=== PATIENT | female | born 1960 | race Hispanic/Latino ===

== ENCOUNTER 2018-09-01 01:48 | Inpatient (IN) | payer MEDICAID ==
--- NOTE | 2018-09-01 02:27 | ED PDOC ---
Psych Transfer Clearance - Clearance Statement Clearance Statement: Dr. George reviewed vital signs, lab results and transfer papers. Patient clinically stable for psychiatric admission.
[2018-09-01] MEDS ORDERED: Bismuth Subsalicylate 262 mg/15 ml Sus (240 ml) PO PRN (02:47)
[2018-09-01] MEDS ORDERED: Alum-Mag Hydrox-Simethicone Susp (30 mL) PO PRN (02:47)
[2018-09-01] MEDS ORDERED: Magnesium Hydroxide Susp 30 ml UD PO PRN (02:47)
--- NOTE | 2018-09-01 03:30 | PCM.BM ---
<Abdoul Easley - Last Filed: 09/01/18 03:28> Treatment Plan Problems - Problems identified on initial assessmt Less than Optimal Nutrition Date Initiated: 09/01/18 Time Initiated: 03:28 Assessment reference: NA Status: Active Priority: 1 Altered Sleep Patterns Date Initiated: 09/01/18 Time Initiated: 03:28 Assessment reference: NA Status: Active Priority: 2 Medication nonadherence Date Initiated: 09/01/18 Time Initiated: 03:29 Assessment reference: NA Status: Active Priority: 3 Self Care Deficit Date Initiated: 09/01/18 Time Initiated: 03:29 Assessment reference: NA Status: Active Priority: 4 Anxiety Date Initiated: 09/01/18 Time Initiated: 03:29 Assessment reference: NA Status: Active Priority: 5 Altered Thought Process Date Initiated: 09/01/18 Time Initiated: 03:29 Assessment reference: NA Status: Active Priority: 6 Social Isolation Date Initiated: 09/01/18 Time Initiated: 03:30 Assessment reference: NA Status: Active Priority: 7 Feelings of Worthlessness Date Initiated: 09/01/18 Time Initiated: 03:30 Assessment reference: NA Status: Active Priority: 8 Hopelessness/Helplessness Date Initiated: 09/01/18 Time Initiated: 03:31 Assessment reference: NA Status: Active Priority: 9 Treatment assets and liabiliti Patient Assests: cooperative, self-reliant, ADL independent, negotiates basic needs Patient Liabilities: financial problems, poor support system, relationship conflicts, substance abuse, medical problems - Milieu Protocol Maintain good personal hygiene: daily Encourage regular showers, daily Remind patient to perform daily oral care, daily Assist patient to perform ADL's Conduct patient checks and document Observation sheet: Q15 minutes Maintain personal safety: every shift Educate patient to report safety concerns to staff, every shift Monitor environment for contraband/sharps Medication safety: Monitor for expected outcome, potential side effects: every shift, Assess barriers to learning: every shift, Assess readiness for medication education: every shift <Saba Moran - Last Filed: 09/01/18 11:07> - Diagnosis (1) Severe benzodiazepine use disorder Status: Acute Interventions: Medicaiton management, Individual and group therapy, Psychoeducation 09/01/18 11:07 (2) Depressive disorder Status: Acute Interventions: Medicaiton management, Individual and group therapy, Psychoeducation 09/01/18 11:08 (3) Generalized anxiety disorder Status: Acute Interventions: Medicaiton management, Individual and group therapy, Psychoeducation 09/01/18 11:08 <Triny Landryleonel Portillo - Last Filed: 09/01/18 12:54> Family Contact Family involvement: Family/SO is involved Family contact: Patient agrees to contact, Family has been contacted by patient, Telephone contact initiated by staff Family contact name: Sav - father Family contacted how many times per week?: 1 Family contact comment: [phone] - Outside Agency David Villalta Obi, MD Care involent: Information-sharing Agency contact number: - Goals for Treatment Patient goals for treatment: Pt will improve overall mood. Pt will report improvement in depression and anxiety. Pt will develop strategies for thought distraction when ruminating ont he past. Pt will reduce anxiety and improve coping skills. Pt will be free of panic episodes. Pt will reduce benzodiazapine intake and consumption. Pt will verbalize when experiencing withdrawals. Pt will attend clinical and activity groups. Pt will comply with medications. Discharge/Continuing Care - Education Needs Education Needs: Patient Medication, Patient Diagnosis/Disease Process, Patient Coping Skills, Patient Community resources, Patient Activities of Daily Living, Patient Uses of Medical Equipment, Patient Health Practices/Safety, Patient Personal Hygiene/Grooming, Patient Aftercare Safety Plan - Discharge Discharge Criteria: Tolerates medication w/o severe side effects, Free of Suicidal thoughts, Free of agitation, Normal sleep pattern, Ability to care for self, Reduction of target symptoms Discharge to:: Home, With Family - Additional Comments Pt seen and discussed in team meeting. Reason for hospitalization reviewed and discussed. Pt was a transfer from [facility]. Pt reported reason for ED visits primarily due to severe cough and bronchitis. Pt reported feeling depressed and anxious with vague and passive wishes. Pt stated "there are days i think what is the purpose here." Pt reported hx of depression and anxiety for 5 years after her brothers . Pt reported she is currently under the care and treatment of Dr. David Bryson who is currently prescribing her Klonopin 2mg TIB, Ambien, Zoloft and Seroquel. Pt reported that prior to Klonopin she was being prescribed Xanax 2mg TIB; however, Dr. Bryson was investigated by the [facility] and Xanax was discontinued. Pt reported that she would like to "wean down and her maintain my medications down." Pt reported conflictual relationship with her son due to his substance abuse hx. 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 Pt reported that her father financially supports her. Pt's medical and social issues reviewed and discussed. Pt's medications reviewed. Please refer to attending MD progress note for additional information. Tx plan reviewed and discussed; pt verbalized agreement. SW to contact pt's father for collateral information; signed release form on file. SW to continue to follow case. - Treatment Team Participation Discussed with Family/SO: No Was Patient/Family/SO present at Treatment Team Meeting: Yes
[2018-09-01] MEDS ORDERED: DiphenhydrAMINE 50 mg/ml Inj IM PRN (04:19)
[2018-09-01 06:40] LABS: HEMOGLOBIN 12.7 g/dL (12.0-16.0); MEAN CELL VOLUME 82.6 fl (81.0-99.0); MEAN CORPUSCULAR HEMOGLOBIN 26.5 pg (27.0-31.0); MEAN CORPUSCULAR HGB CONC 32.1 g/dL (33.0-37.0); RBC 4.81 Mil/uL (3.80-5.20); RED CELL DISTRIBUTION WIDTH 18.6 % (11.5-14.5); WHITE BLOOD COUNT 7.9 K/uL (4.8-10.8)
[2018-09-01 07:02] LABS: IRON 47 ug/dL (37-170)
[2018-09-01 07:11] LABS: % IRON SATURATION 13 % (20-55); TOTAL IRON BINDING CAPACITY 375 ug/dL (250-450)
[2018-09-01 07:24] LABS: ALB/GLOB RATIO 1.3 (1.0-2.1); ALBUMIN 4.7 g/dL (3.5-5.0); ALT/SGPT 20 U/L (9-52); AST/SGOT 22 U/L (14-36); BLOOD UREA NITROGEN 18 mg/dl (7-17); CALCIUM 9.8 mg/dL (8.4-10.2); GFR NON-AFRICAN AMERICAN > 60; HDL CHOLESTEROL 75 MG/DL (30-70)
[2018-09-01 07:40] LABS: LDL CHOLESTEROL 169 mg/dL (0-129)
[2018-09-01 08:08] LABS: FERRITIN 19.6 ng/Ml (11.1-264.0)
--- NOTE | 2018-09-01 10:47 | PCM.PSYCH ---
Initial Psychiatric Evaluation - Initial Psychiatric Evaluation Type of Admission: Voluntary Legal Status: Capacity Chief Complaint (in patient's own words): Depression and Anxiety Patient's Reaction to Hospitalization: HPI: 58 yo female w/ h/o depression and anxiety, presents with worsening depression and anxiety, hopelessness, poor sleep, poor appetite, reported suicidal thoughts in the ER yesterday, but denies current active suicidal bettie ation/plan/intent. Patient reports she has been taking Klonopin 2 mg PO TID and also reports a history of taking Xanax 2 mg PO TID. Patient keeps requesting to poem writer that she be given more benzodiazepines and made vague threats that she may have a "seizure" and then describes how she may have upper body movements while still conscious and with "twitching eyes." Patient seems highly manipulative on interview. PPHx: 1 previous psychiatric admission in [facility] 8 months ago for depression, anxiety; no history of suicide attempts; Dr. Bryson; She reports that she has been taking Zoloft 200 mg PO Daily; Seroquel 50 mg as needed; Ambien 10 mg PO HS, Klonopin 2 mg PO TID. Patient gives conflicting information on the amount of benzodiazepines she uses. PMHx: HTN, COPD, Chronic back pain ALL: Codeine, ASA, Keflex, NSAIDs, Trazodone, TB serum SHx: Lives w/ her father; +Benzo use, smokes almost 1 ppd; denies alcohol use FHx: Mother's family w/ h/o depression and anxiety Current Medications: Active Medications Generic Name Dose Route Start Last Admin Trade Name Freq PRN Reason Stop Dose Admin Acetaminophen 650 mg 09/01/18 02:47 Tylenol 325mg Tab PO Q4 PRN Pain, moderate (4-7) Al Hydrox/Mg Hydrox/Simethicone 30 ml 09/01/18 02:47 Maalox Plus 30 Ml PO Q4 PRN Dyspepsia Amlodipine Besylate 10 mg 09/01/18 09:00 09/01/18 09:05 Norvasc PO 10 mg DAILY [facility] Administration Benzonatate 100 mg 09/01/18 09:00 09/01/18 09:04 Tessalon Perles PO 100 mg Q8 [facility]EL Administration Clindamycin HCl 300 mg 09/01/18 09:00 09/01/18 09:04 Cleocin PO 300 mg Q8 [facility]EL Administration Protocol Diphenhydramine HCl 50 mg 09/01/18 04:19 Benadryl IM Q6 PRN Extrapyramidal S/S Unable PO Diphenhydramine HCl 50 mg 09/01/18 04:19 Benadryl PO Q6 PRN Extrapyramidal Symptoms Diphenhydramine HCl 50 mg 09/01/18 04:19 Benadryl PO HS PRN Sleep Haloperidol 5 mg 09/01/18 04:19 Haldol PO Q4 PRN Agitation Haloperidol Lactate 5 mg 09/01/18 04:19 Haldol IM Q4 PRN Agitation, Unable to Take PO Lorazepam 2 mg 09/01/18 04:19 Ativan IM Q6 PRN Anxiety/Agitation,Unable PO Lorazepam 1 mg 09/01/18 04:19 09/01/18 06:32 Ativan PO 1 mg Q6 PRN Administration Anxiety/Agitation Magnesium Hydroxide 30 ml 09/01/18 02:47 Milk Of Magnesia PO HS PRN Constipation Zolpidem Tartrate 5 mg 09/01/18 22:00 Ambien PO HS [facility] Past Psychiatric History - Past Psychiatric History Previous Treatment History: Inpatient Pertinent Medical Hx (Current Medical&Sleep Prob, Allergies): Allergies Allergy/AdvReac Type Severity Reaction Status Date / Time NSAIDS (Non-Steroidal Allergy Mild RASH Verified 09/01/18 02:10 Anti-Inflamma aspirin Allergy RASH Verified 09/01/18 05:07 cephalexin [From Keflex] Allergy RASH Verified 09/01/18 05:07 codeine Allergy ANAPHYLAXIS Verified 09/01/18 05:07 trazodone Allergy SHORTNESS Verified 09/01/18 06:38 OF BREATH tuberculin, purified protein Allergy RASH Verified 09/01/18 05:07 deriva Benzonatate [Tessalon Perles] 100 mg PO Q8H 09/01/18 Clindamycin [Cleocin] 300 mg PO Q8H 09/01/18 Clonazepam 2 mg PO 09/01/18 QUEtiapine [SEROquel] 50 mg PO 09/01/18 Sertraline [Zoloft] 100 mg PO 09/01/18 Zolpidem [Ambien] 10 mg PO 09/01/18 amLODIPine [Norvasc] 10 mg PO 09/01/18 Review of Systems - Psychiatric Psychiatric: As Per HPI, Abnormal Sleep Pattern, Anhedonia, Anxiety, Behavioral Changes, Change in Appetite, Depression, Difficulty Concentrating, Hopelessness, Suicidal Ideation Mental Status Examination - Personal Presentation Personal Presentation: Looks stated age - Affect Affect: Constricted - Motor Activity Motor Activity: Calm - Reliability in Providing Information Reliability in Providing Information: Fair - Speech Speech: Coherent - Mood Mood: Depressed, Anxious - Formal Thought Process Formal Thought Process: No Impairment - Hallucinations/Delusions Additional comments: No AH/VH/paranoia/delusions - Obsessions/Compulsions Obsessions: No Compulsions: No - Cognitive Functions Orientation: Person, Place, Situation, Time Estimate of Intelligence: Average Judgement: Imparied, as evidence by: Poor judgement, Imparied, as evidence by: Lack of insight into illness Memory: Recent intact, as evidence by: Ability to recall events of the day - Risk Risk: Withdrawal, Diminished functioning - Strength & Assets Inventory Strength & Assets Inventory: Family support DSM 5 DX - DSM 5 DSM 5 Diagnosis: Benzodiazepine Use Disorder; Depressive Disorder; Generalized Anxiety Disorder - Recommended/Plan of Treatment Treatment Recommendations and Plan of Treatment: Benzodiazepine Use Disorder; Depressive Disorder; Generalized Anxiety Disorder -Admit to psychiatry unit -Give Klonopin to prevent benzo withdrawal; will taper gradually; Psychoeducation provided to the patient on the dangers of benzo abuse -Restart Zoloft and Seroquel -Medicine consult -Individual and group therapy -Disposition planning Projected ELOS: 5-8 days Discharge Plan and Discharge Criteria: Discharge when patient is psychiatrically stable - Smoking Cessation Smoking Cessation Initiated: Yes
[2018-09-01 12:54] LABS: FOLATE 11.3 ng/mL
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
[2018-09-01] MEDS ORDERED: Patient's Own Med (Zolpidem [Ambien] 10 MG) PO SCH (22:00)
--- NOTE | 2018-09-02 12:03 | PCM.PYCHPN ---
Psychiatric Progress Note - Psychiatric Progress Note Patient seen today, length of contact: pt seen and evaluated Patient Chief Complaint: pt has been still c/o feeling very anxious at bedtime and waking up with anxiety and says that she did well on remeron.pt is still depressed and anxious and exhibiting meds seeking behavior and remains with poor insight and poor judgement and need further stabilization. Medication Change: No Medical Record Reviewed: Yes Mental Status Examination - Cognitive Function Orientation: Person, Place, Situation, Time - Mood Mood: Depressed, Anxious - Affect Affect: Constricted - Formal Thought Process Formal Thought Process: No Impairment Goal/Treatment Plan - Goal/Treatment Plan Progress Toward Problem(s) and Goals/Treatment Plan: will continue to engage pt in therapy and adjust meds as needed and minimise benzos due to patient's med seeking behavior will add remeron 15 mg hs for anxiety and depression and pt agreed to plan. disposition as per dr molina
[2018-09-02 17:00] LABS: SQUAMOUS EPITHIAL 2 /hpf (0-5); URINE BILIRUBIN NEGATIVE (NEGATIVE); URINE BLOOD NEGATIVE (NEGATIVE); URINE CLARITY SLIGHTY-CLOUDY (Clear); URINE COLOR YELLOW (YELLOW); URINE GLUCOSE (UA) NEG (NEGATIVE); URINE LEUKOCYTE ESTERASE NEG Leu/uL (Negative); URINE PROTEIN NEGATIVE (NEGATIVE); URINE UROBILINOGEN 0.2-1.0 mg/dL (0.2-1.0)
[2018-09-03 06:01] VITALS: O2SAT 98
--- NOTE | 2018-09-03 16:13 | CP.PCM.PN ---
<Viri Mcclelland - Last Filed: 09/03/18 15:50> Subjective - Date & Time of Evaluation Date of Evaluation: 09/03/18 Time of Evaluation: 15:15 - Subjective Subjective: Patient seen and examined in Psych unit this afternoon. Patient is seen alert, awake, and in no acute distress. Patient still having some pain in her left forearm. On PO clindamycin. Denies fevers, chills, N/V. Also patient coughing for more than one week, associated with yellowish sputum production. Objective - Vital Signs/Intake and Output Vital Signs (last 24 hours): Temp Pulse Resp BP Pulse Ox 97.7 F 68 18 152/86 H 98 09/03/18 06:00 09/03/18 08:34 09/03/18 06:00 09/03/18 08:34 09/03/18 06:00 - Medications Medications: Current Medications Acetaminophen (Tylenol 325mg Tab) 650 mg PO Q4 PRN PRN Reason: Pain, moderate (4-7) Last Admin: 09/02/18 21:18 Dose: 650 mg Al Hydrox/Mg Hydrox/Simethicone (Maalox Plus 30 Ml) 30 ml PO Q4 PRN PRN Reason: Dyspepsia Albuterol/Ipratropium (Duoneb 3 Mg/0.5 Mg (3 Ml) Ud) 3 ml INH RQ6 [place] Amlodipine Besylate (Norvasc) 10 mg PO DAILY [facility] Last Admin: 09/03/18 08:34 Dose: 10 mg Benzonatate (Tessalon Perles) 100 mg PO Q8@0600,1400,2200 [facility] Last Admin: 09/03/18 13:28 Dose: 100 mg Clindamycin HCl (Cleocin) 300 mg PO Q8@0600,1400,2200 [facility]; Protocol Last Admin: 09/03/18 13:29 Dose: 300 mg Clonazepam (Klonopin) 1 mg PO TID [facility] Last Admin: 09/03/18 13:28 Dose: 1 mg Diphenhydramine HCl (Benadryl) 50 mg IM Q6 PRN PRN Reason: Extrapyramidal S/S Unable PO Diphenhydramine HCl (Benadryl) 50 mg PO Q6 PRN PRN Reason: Extrapyramidal Symptoms Diphenhydramine HCl (Benadryl) 50 mg PO HS PRN PRN Reason: Sleep Guaifenesin/Dextromethorphan (Mucinex-Dm 600-30 Mg) 1 tab PO BID [facility] Haloperidol (Haldol) 5 mg PO Q4 PRN PRN Reason: Agitation Haloperidol Lactate (Haldol) 5 mg IM Q4 PRN PRN Reason: Agitation, Unable to Take PO Loperamide HCl (Imodium) 2 mg PO Q6 PRN PRN Reason: Diarrhea Last Admin: 09/01/18 16:14 Dose: 2 mg Lorazepam (Ativan) 2 mg IM Q6 PRN PRN Reason: Anxiety/Agitation,Unable PO Lorazepam (Ativan) 1 mg PO Q6 PRN PRN Reason: Anxiety/Agitation Last Admin: 09/03/18 11:16 Dose: 1 mg Magnesium Hydroxide (Milk Of Magnesia) 30 ml PO HS PRN PRN Reason: Constipation Mirtazapine (Remeron) 15 mg PO HS [facility] Nicotine (Nicoderm Cq) 1 patch TD DAILY [facility] Last Admin: 09/03/18 08:34 Dose: 1 patch Quetiapine Fumarate (Seroquel) 100 mg PO HS [facility] Last Admin: 09/02/18 21:20 Dose: 100 mg Sertraline HCl (Zoloft) 200 mg PO DAILY [facility] Last Admin: 09/03/18 08:35 Dose: 200 mg - Labs Labs: 09/01/18 06:15 09/01/18 06:15 - Constitutional Appears: Non-toxic, No Acute Distress - Eye Exam Eye Exam: Normal appearance - ENT Exam ENT Exam: Mucous Membranes Moist - Respiratory Exam Respiratory Exam: Rhonchi (scant, diffuse rhonchi bilateral), NORMAL BREATHING PATTERN. absent: Decreased Breath Sounds, Rales, Wheezes, Respiratory Distress, Stridor - Cardiovascular Exam Cardiovascular Exam: REGULAR RHYTHM, +S1, +S2 - GI/Abdominal Exam GI & Abdominal Exam: Soft, Normal Bowel Sounds. absent: Distended, Guarding, Rigid, Tenderness - Extremities Exam Extremities Exam: Normal Inspection. absent: Calf Tenderness, Pedal Edema Additional comments: left forearm: erythematous lesion with a 1 1//2 cm diameter round raised center, tender and fluctuant to palpation. No axillary lymph node - Back Exam Back Exam: NORMAL INSPECTION. absent: CVA tenderness (L), CVA tenderness (R) - Neurological Exam Neurological Exam: Alert, Awake, Oriented x3 - Psychiatric Exam Psychiatric exam: Normal Affect, Normal Mood - Skin Skin Exam: Dry, Intact, Normal Color Assessment and Plan - Assessment and Plan (Free Text) Assessment: 58 y/o F with h/o HTN, COPD, depression admitted in psych unit for eval and Treatment reports productive cough for more than 1 week, and left forearm cellulitis. Plan: Productive cough -h/o COPD -x 1 week -CXR, f/u results -start mucinex DM -start duoneb inh Q6h Left arm cellulitis Lesion marked, no spreading beyond rita -associated with poss abscess -No axillary lymphadenopathy. -h/o MRSA -c/w warm compresses -s/p being scratched by cat -pending Bartonella IGM/IGG to r/o Cat scratch disease -on clindamycin PO Q6 -surgical consult for poss drainage. Recs area appreciated -tylenol for pain, has NSAIDs allergies -CBC to f/u WBC Low TSH normal FRee T3/T4 pending antibodies <Lynsey Luna - Last Filed: 09/05/18 07:40> Objective - Vital Signs/Intake and Output Vital Signs (last 24 hours): Temp Pulse Resp BP Pulse Ox 98.1 F 91 H 18 97/60 L 98 09/05/18 05:55 09/05/18 05:55 09/05/18 05:55 09/05/18 05:55 09/04/18 15:55 - Medications Medications: Current Medications Acetaminophen (Tylenol 325mg Tab) 650 mg PO Q4 PRN PRN Reason: Pain, moderate (4-7) Last Admin: 09/04/18 22:45 Dose: 650 mg Al Hydrox/Mg Hydrox/Simethicone (Maalox Plus 30 Ml) 30 ml PO Q4 PRN PRN Reason: Dyspepsia Albuterol/Ipratropium (Duoneb 3 Mg/0.5 Mg (3 Ml) Ud) 3 ml INH RQ6 [facility] Last Admin: 09/05/18 02:00 Dose: Not Given Amlodipine Besylate (Norvasc) 10 mg PO DAILY [facility] Last Admin: 09/04/18 12:32 Dose: 10 mg Benzonatate (Tessalon Perles) 100 mg PO Q8@0600,1400,2200 [facility] Last Admin: 09/05/18 05:57 Dose: 100 mg Clonazepam (Klonopin) 1 mg PO TID [facility] Last Admin: 09/04/18 16:36 Dose: 1 mg Diphenhydramine HCl (Benadryl) 50 mg IM Q6 PRN PRN Reason: Extrapyramidal S/S Unable PO Diphenhydramine HCl (Benadryl) 50 mg PO Q6 PRN PRN Reason: Extrapyramidal Symptoms Diphenhydramine HCl (Benadryl) 50 mg PO HS PRN PRN Reason: Sleep Guaifenesin/Dextromethorphan (Mucinex-Dm 600-30 Mg) 1 tab PO BID [facility] Last Admin: 09/04/18 16:35 Dose: 1 tab Haloperidol (Haldol) 5 mg PO Q4 PRN PRN Reason: Agitation Haloperidol Lactate (Haldol) 5 mg IM Q4 PRN PRN Reason: Agitation, Unable to Take PO Loperamide HCl (Imodium) 2 mg PO Q6 PRN PRN Reason: Diarrhea Last Admin: 09/01/18 16:14 Dose: 2 mg Lorazepam (Ativan) 2 mg IM Q6 PRN PRN Reason: Anxiety/Agitation,Unable PO Lorazepam (Ativan) 1 mg PO Q6 PRN PRN Reason: Anxiety/Agitation Last Admin: 09/04/18 22:45 Dose: 1 mg Magnesium Hydroxide (Milk Of Magnesia) 30 ml PO HS PRN PRN Reason: Constipation Mirtazapine (Remeron) 15 mg PO HS [facility] Last Admin: 09/04/18 21:17 Dose: 15 mg Nicotine (Nicoderm Cq) 1 patch TD DAILY [facility] Last Admin: 09/04/18 11:03 Dose: 1 patch Quetiapine Fumarate (Seroquel) 100 mg PO HS [facility] Last Admin: 09/04/18 21:17 Dose: 100 mg Sertraline HCl (Zoloft) 200 mg PO DAILY [facility] Last Admin: 09/04/18 12:31 Dose: 200 mg - Labs Labs: 09/03/18 19:11 09/01/18 06:15 Attending/Attestation - Attestation I have personally seen and examined this patient.: Yes I have fully participated in the care of the patient.: Yes I have reviewed all pertinent clinical information, including history, physical exam and plan: Yes Notes (Text): 09/05/18 07:40 With findings and plan as above. With cellulitis due to cat scratch. On clindamycin.
[2018-09-03] MEDS: guaiFENesin-DM 600-30 mg ER Tab PO SCH (17:14)
[2018-09-03 19:15] LABS: BASO # 0.1 K/uL (0.0-0.2); BASO % 0.8 % (0.0-2.0); EOS # 0.1 K/uL (0.0-0.7); EOS % 0.9 % (0.0-4.0); HEMOGLOBIN 11.8 g/dL (12.0-16.0); LYMPH # 1.7 K/uL (1.0-4.3); LYMPH % 16.9 % (20.0-40.0); MEAN CELL VOLUME 81.1 fl (81.0-99.0); MEAN CORPUSCULAR HEMOGLOBIN 26.6 pg (27.0-31.0); MEAN CORPUSCULAR HGB CONC 32.8 g/dL (33.0-37.0); MEAN PLATELET VOLUME 9.3 fl (7.2-11.7); MONO # 0.7 K/uL (0.0-0.8); MONO % 6.8 % (0.0-10.0); NEUT # 7.7 K/uL (1.8-7.0); NEUT % 74.6 % (50.0-75.0); RBC 4.43 Mil/uL (3.80-5.20); RED CELL DISTRIBUTION WIDTH 18.6 % (11.5-14.5); WHITE BLOOD COUNT 10.3 K/uL (4.8-10.8)
[2018-09-03] MEDS: Albuterol-Ipratrop 3 mg / 0.5 (3 ml) UD INH SCH (20:10)
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
[2018-09-04] MEDS: Albuterol-Ipratrop 3 mg / 0.5 (3 ml) UD INH SCH ×4 (01:15→19:06)
[2018-09-04] MEDS: guaiFENesin-DM 600-30 mg ER Tab PO SCH ×2 (08:22→16:35)
--- NOTE | 2018-09-04 11:58 | CP.PCM.PN ---
<Viri Mcclelland - Last Filed: 09/04/18 12:35> Subjective - Date & Time of Evaluation Date of Evaluation: 09/04/18 Time of Evaluation: 12:00 - Subjective Subjective: Patient was seen and examined at bedside in Psychiatry unit. Patient is seen alert, awake, and oriented x 3. Patient reports pain in her left forearm at the abscess level. Cough has been improving since yesterday with duoneb. Denies chest pain, SOB, dizziness, N/V, abdominal pain or other complains at this eval. Has been NPO after midnight as per surgery recommendations for possible I & D in OR today. Objective - Vital Signs/Intake and Output Vital Signs (last 24 hours): Temp Pulse Resp BP Pulse Ox 97.6 F 76 19 141/72 98 09/04/18 05:57 09/04/18 10:59 09/04/18 05:57 09/04/18 10:59 09/03/18 06:00 - Medications Medications: Current Medications Acetaminophen (Tylenol 325mg Tab) 650 mg PO Q4 PRN PRN Reason: Pain, moderate (4-7) Last Admin: 09/04/18 06:00 Dose: 650 mg Al Hydrox/Mg Hydrox/Simethicone (Maalox Plus 30 Ml) 30 ml PO Q4 PRN PRN Reason: Dyspepsia Albuterol/Ipratropium (Duoneb 3 Mg/0.5 Mg (3 Ml) Ud) 3 ml INH RQ6 [place] Last Admin: 09/04/18 08:22 Dose: 3 ml Amlodipine Besylate (Norvasc) 10 mg PO DAILY [facility] Last Admin: 09/04/18 10:59 Dose: Not Given Benzonatate (Tessalon Perles) 100 mg PO Q8@0600,1400,2200 [place] Last Admin: 09/04/18 06:29 Dose: Not Given Clindamycin HCl (Cleocin) 300 mg PO Q8@0600,1400,2200 [facility]; Protocol Last Admin: 09/04/18 06:30 Dose: Not Given Diphenhydramine HCl (Benadryl) 50 mg IM Q6 PRN PRN Reason: Extrapyramidal S/S Unable PO Diphenhydramine HCl (Benadryl) 50 mg PO Q6 PRN PRN Reason: Extrapyramidal Symptoms Diphenhydramine HCl (Benadryl) 50 mg PO HS PRN PRN Reason: Sleep Guaifenesin/Dextromethorphan (Mucinex-Dm 600-30 Mg) 1 tab PO BID [facility] Last Admin: 09/04/18 08:22 Dose: Not Given Haloperidol (Haldol) 5 mg PO Q4 PRN PRN Reason: Agitation Haloperidol Lactate (Haldol) 5 mg IM Q4 PRN PRN Reason: Agitation, Unable to Take PO Loperamide HCl (Imodium) 2 mg PO Q6 PRN PRN Reason: Diarrhea Last Admin: 09/01/18 16:14 Dose: 2 mg Lorazepam (Ativan) 2 mg IM Q6 PRN PRN Reason: Anxiety/Agitation,Unable PO Lorazepam (Ativan) 1 mg PO Q6 PRN PRN Reason: Anxiety/Agitation Last Admin: 09/03/18 21:04 Dose: 1 mg Magnesium Hydroxide (Milk Of Magnesia) 30 ml PO HS PRN PRN Reason: Constipation Mirtazapine (Remeron) 15 mg PO HS [facility] Last Admin: 09/03/18 21:05 Dose: 15 mg Nicotine (Nicoderm Cq) 1 patch TD DAILY [facility] Last Admin: 09/04/18 11:03 Dose: 1 patch Quetiapine Fumarate (Seroquel) 100 mg PO HS [facility] Last Admin: 09/03/18 21:05 Dose: 100 mg Sertraline HCl (Zoloft) 200 mg PO DAILY [facility] Last Admin: 09/04/18 10:59 Dose: Not Given - Labs Labs: 09/03/18 19:11 09/01/18 06:15 - Constitutional Appears: Non-toxic, No Acute Distress - Head Exam Head Exam: NORMAL INSPECTION - Eye Exam Eye Exam: Normal appearance - ENT Exam ENT Exam: Mucous Membranes Moist - Respiratory Exam Respiratory Exam: Clear to Ausculation Bilateral, NORMAL BREATHING PATTERN. absent: Rhonchi, Wheezes, Respiratory Distress, Stridor - Cardiovascular Exam Cardiovascular Exam: REGULAR RHYTHM, +S1, +S2 - GI/Abdominal Exam GI & Abdominal Exam: Soft, Normal Bowel Sounds. absent: Guarding, Rigid, Tenderness - Extremities Exam Extremities Exam: Normal Inspection. absent: Calf Tenderness, Pedal Edema - Neurological Exam Neurological Exam: Alert, Awake, Oriented x3 Assessment and Plan - Assessment and Plan (Free Text) Assessment: 58 y/o F with h/o HTN, COPD, depression admitted in psych unit for eval and Treatment reports productive cough for more than 1 week, and left forearm cellulitis and abscess. Plan: Left arm cellulitis patient is medically optimized for I & D procedure by surgery today -has been NPO after midnight for I & D today Lesion marked, no spreading beyond rita -associated with poss abscess -No axillary lymphadenopathy. -h/o MRSA -c/w warm compresses -s/p being scratched by cat -pending Bartonella IGM/IGG to r/o Cat scratch disease -on clindamycin PO Q6 -surgery consulted. Recs are appreciated -tylenol for pain, has NSAIDs allergies -CBC today showed no leukocytosis Productive cough improving -h/o COPD -x 1 week -CXR, f/u results -c/e mucinex DM x 5 days -c/w duoneb inh Q8 <Lynsey Luna - Last Filed: 09/05/18 07:34> Objective - Vital Signs/Intake and Output Vital Signs (last 24 hours): Temp Pulse Resp BP Pulse Ox 98.1 F 91 H 18 97/60 L 98 09/05/18 05:55 09/05/18 05:55 09/05/18 05:55 09/05/18 05:55 09/04/18 15:55 - Medications Medications: Current Medications Acetaminophen (Tylenol 325mg Tab) 650 mg PO Q4 PRN PRN Reason: Pain, moderate (4-7) Last Admin: 09/04/18 22:45 Dose: 650 mg Al Hydrox/Mg Hydrox/Simethicone (Maalox Plus 30 Ml) 30 ml PO Q4 PRN PRN Reason: Dyspepsia Albuterol/Ipratropium (Duoneb 3 Mg/0.5 Mg (3 Ml) Ud) 3 ml INH RQ6 [facility] Last Admin: 09/05/18 02:00 Dose: Not Given Amlodipine Besylate (Norvasc) 10 mg PO DAILY [facility] Last Admin: 09/04/18 12:32 Dose: 10 mg Benzonatate (Tessalon Perles) 100 mg PO Q8@0600,1400,2200 [facility] Last Admin: 09/05/18 05:57 Dose: 100 mg Clonazepam (Klonopin) 1 mg PO TID [facility] Last Admin: 09/04/18 16:36 Dose: 1 mg Diphenhydramine HCl (Benadryl) 50 mg IM Q6 PRN PRN Reason: Extrapyramidal S/S Unable PO Diphenhydramine HCl (Benadryl) 50 mg PO Q6 PRN PRN Reason: Extrapyramidal Symptoms Diphenhydramine HCl (Benadryl) 50 mg PO HS PRN PRN Reason: Sleep Guaifenesin/Dextromethorphan (Mucinex-Dm 600-30 Mg) 1 tab PO BID [facility] Last Admin: 09/04/18 16:35 Dose: 1 tab Haloperidol (Haldol) 5 mg PO Q4 PRN PRN Reason: Agitation Haloperidol Lactate (Haldol) 5 mg IM Q4 PRN PRN Reason: Agitation, Unable to Take PO Loperamide HCl (Imodium) 2 mg PO Q6 PRN PRN Reason: Diarrhea Last Admin: 09/01/18 16:14 Dose: 2 mg Lorazepam (Ativan) 2 mg IM Q6 PRN PRN Reason: Anxiety/Agitation,Unable PO Lorazepam (Ativan) 1 mg PO Q6 PRN PRN Reason: Anxiety/Agitation Last Admin: 09/04/18 22:45 Dose: 1 mg Magnesium Hydroxide (Milk Of Magnesia) 30 ml PO HS PRN PRN Reason: Constipation Mirtazapine (Remeron) 15 mg PO HS [facility] Last Admin: 09/04/18 21:17 Dose: 15 mg Nicotine (Nicoderm Cq) 1 patch TD DAILY [facility] Last Admin: 09/04/18 11:03 Dose: 1 patch Quetiapine Fumarate (Seroquel) 100 mg PO HS [facility] Last Admin: 09/04/18 21:17 Dose: 100 mg Sertraline HCl (Zoloft) 200 mg PO DAILY [facility] Last Admin: 09/04/18 12:31 Dose: 200 mg - Labs Labs: 09/03/18 19:11 09/01/18 06:15 Attending/Attestation - Attestation I have personally seen and examined this patient.: Yes I have fully participated in the care of the patient.: Yes I have reviewed all pertinent clinical information, including history, physical exam and plan: Yes Notes (Text): 09/05/18 07:34 30-year-old female admitted to psych requiring I&D of cellulitis on forearm and OR by surgery. Patient medically stable for OR. Agree with findings and plan as above.
--- NOTE | 2018-09-04 12:18 | RAD ---
Date of service: 09/04/2018 HISTORY: Smoker, cough. COMPARISON: None TECHNIQUE: 1 view obtained. FINDINGS: LUNGS: No active pulmonary disease.. 1 or 2 granulomas left lung base may be present Scalloping right hemidiaphragm. Peripherally calcified bilateral breast implants. PLEURA: No significant pleural effusion identified, no pneumothorax apparent. CARDIOVASCULAR: No aortic atherosclerotic calcification present. Heart size borderline enlarged. No pulmonary vascular congestion. OSSEOUS STRUCTURES: No significant abnormalities. VISUALIZED UPPER ABDOMEN: Normal. OTHER FINDINGS: None. IMPRESSION: No acute consolidation. Minor linear scarring left medial lung base consolidation. One or 2 tiny granulomas may be present. Peripherally calcified bilateral breast implants.
[2018-09-04] MEDS ORDERED: Midazolam 2 MG/2 ML VIAL ONE (13:11)
[2018-09-04] MEDS ORDERED: Propofol 10 mg/ml Inj (20 ML) ONE (13:11)
[2018-09-04] MEDS ORDERED: Lidocaine 1% Inj (20ml) ONE (13:38)
[2018-09-04] MEDS ORDERED: Clindamycin 300 mg/2 ml Inj IVPB ONE (14:30)
--- NOTE | 2018-09-04 14:49 | PCM.SURG1 ---
Surgeon's Initial Post Op Note - Surgeon's Notes Surgeon: Dr. [employer] Executive Security: Dr. Elizabeth Bunn PGY1 Type of Anesthesia: General Mask, Local Anesthesia Administered By: Dr. Muñoz Pre-Operative Diagnosis: Left arm abscess Operative Findings: See dictation. Injectables: 2cc of 1% lidocaine plain. Materials: 1/4 inch iodoform packing Post-Operative Diagnosis: Left arm abscess Operation Performed: Left arm abscess incision and drainage Specimen/Specimens Removed: None Estimated Blood Loss: EBL {In ML}: 1 Blood Products Given: N/A Drains Used: No Drains Post-Op Condition: Good Date of Surgery/Procedure: 09/04/18 Time of Surgery/Procedure: 14:48
[2018-09-04] MEDS ORDERED: Sodium Chloride 0.9% 1,000 ML IV SCH (15:00)
--- NOTE | 2018-09-04 16:28 | PCM.PYCHPN ---
Psychiatric Progress Note - Psychiatric Progress Note Patient seen today, length of contact: chart reviewed case discussed with team Patient Chief Complaint: pt was off unit for I and D of wound on arm-pt was noted to arrive on unit, pt was assessed by primary rn, pt was noted to be ambulating/asking for food. reports not having pain or dizziness. reports understands why procedure was done. staff report pt is adherent with treatment, Problems Identified/Issues Discussed: alteration in skin integrity alteration in mood Medical Problems: per chart Diagnostic Results: per psychiatry per medicine per surgery per nursing per social work per recreational therapy DSM 5 Symptoms Update: mood appears to stabilizing pt seen by surgery/or today for I and D Medication Change: No Medical Record Reviewed: Yes Consults ordered or reviewed: pt seen by surgery/medicine today Mental Status Examination - Cognitive Function Orientation: Person, Place, Situation, Time Attention: WNL Concentration: WNL Association: WNL Fund of Knowledge: WN Decription of patient's judgement and insights: somewhat impaired - Mood Mood: Depressed, Anxious - Affect Affect: Constricted - Formal Thought Process Formal Thought Process: No Impairment - Suicidal Ideation Suicidal Ideation: No - Homicidal Ideation Homicidal Ideation: No Goal/Treatment Plan - Goal/Treatment Plan Progress Toward Problem(s) and Goals/Treatment Plan: inpt milieu vital signs and clinical evaluation per protocol and per clinical status pt being followed by medicine discharge planning in progress Estimated Date of D/C: 09/05/18 - Smoking Cessation Smoking Cessation Initiated: No Reason for not providing: defers
--- NOTE | 2018-09-04 19:21 | CARD ---
APPROVED REPORT Date of service: 09/04/2018 EKG Measurement Heart [id number] <Conclusion> Normal sinus rhythm Nonspecific T wave abnormality Abnormal ECG
[2018-09-05] MEDS: Albuterol-Ipratrop 3 mg / 0.5 (3 ml) UD INH SCH ×2 (02:00→09:03)
[2018-09-05 05:57] VITALS: BP 97/60; RESP 18; TEMP 98.1
--- NOTE | 2018-09-05 07:57 | CP.PCM.PN ---
Subjective - Date & Time of Evaluation Date of Evaluation: 09/05/18 Time of Evaluation: 07:57 - Subjective Subjective: General Surgery Progress Note: Dr. Dinh 58 year old female patient seen and evaluated POD#1 left arm abscess incision and drainage. Patient resting comfortably, denies any acute events overnight. She reports pain to the surgical site at this time. Dressing clean/dry/intact, no strikethrough. Denies nausea/vomiting/fever/shortness of breath. Objective - Vital Signs/Intake and Output Vital Signs (last 24 hours): Temp Pulse Resp BP Pulse Ox 98.1 F 91 H 18 97/60 L 98 09/05/18 05:55 09/05/18 05:55 09/05/18 05:55 09/05/18 05:55 09/04/18 15:55 - Medications Medications: Current Medications Acetaminophen (Tylenol 325mg Tab) 650 mg PO Q4 PRN PRN Reason: Pain, moderate (4-7) Last Admin: 09/04/18 22:45 Dose: 650 mg Al Hydrox/Mg Hydrox/Simethicone (Maalox Plus 30 Ml) 30 ml PO Q4 PRN PRN Reason: Dyspepsia Albuterol/Ipratropium (Duoneb 3 Mg/0.5 Mg (3 Ml) Ud) 3 ml INH RQ6 [facility] Last Admin: 09/05/18 02:00 Dose: Not Given Amlodipine Besylate (Norvasc) 10 mg PO DAILY [facility] Last Admin: 09/04/18 12:32 Dose: 10 mg Benzonatate (Tessalon Perles) 100 mg PO Q8@0600,1400,2200 [facility] Last Admin: 09/05/18 05:57 Dose: 100 mg Clonazepam (Klonopin) 1 mg PO TID [facility] Last Admin: 09/04/18 16:36 Dose: 1 mg Diphenhydramine HCl (Benadryl) 50 mg IM Q6 PRN PRN Reason: Extrapyramidal S/S Unable PO Diphenhydramine HCl (Benadryl) 50 mg PO Q6 PRN PRN Reason: Extrapyramidal Symptoms Diphenhydramine HCl (Benadryl) 50 mg PO HS PRN PRN Reason: Sleep Guaifenesin/Dextromethorphan (Mucinex-Dm 600-30 Mg) 1 tab PO BID [facility] Last Admin: 09/04/18 16:35 Dose: 1 tab Haloperidol (Haldol) 5 mg PO Q4 PRN PRN Reason: Agitation Haloperidol Lactate (Haldol) 5 mg IM Q4 PRN PRN Reason: Agitation, Unable to Take PO Loperamide HCl (Imodium) 2 mg PO Q6 PRN PRN Reason: Diarrhea Last Admin: 09/01/18 16:14 Dose: 2 mg Lorazepam (Ativan) 2 mg IM Q6 PRN PRN Reason: Anxiety/Agitation,Unable PO Lorazepam (Ativan) 1 mg PO Q6 PRN PRN Reason: Anxiety/Agitation Last Admin: 09/04/18 22:45 Dose: 1 mg Magnesium Hydroxide (Milk Of Magnesia) 30 ml PO HS PRN PRN Reason: Constipation Mirtazapine (Remeron) 15 mg PO HS [facility] Last Admin: 09/04/18 21:17 Dose: 15 mg Nicotine (Nicoderm Cq) 1 patch TD DAILY [facility] Last Admin: 09/04/18 11:03 Dose: 1 patch Quetiapine Fumarate (Seroquel) 100 mg PO HS [facility] Last Admin: 09/04/18 21:17 Dose: 100 mg Sertraline HCl (Zoloft) 200 mg PO DAILY [facility] Last Admin: 09/04/18 12:31 Dose: 200 mg - Labs Labs: 09/03/18 19:11 09/01/18 06:15 - Constitutional Appears: Non-toxic, No Acute Distress - Head Exam Head Exam: ATRAUMATIC, NORMOCEPHALIC - Eye Exam Eye Exam: Normal appearance - ENT Exam ENT Exam: Mucous Membranes Moist - Respiratory Exam Respiratory Exam: NORMAL BREATHING PATTERN - Cardiovascular Exam Cardiovascular Exam: REGULAR RHYTHM - GI/Abdominal Exam GI & Abdominal Exam: Soft. absent: Tenderness - Extremities Exam Additional comments: Left forearm abscess with erythema appreciated circumfrentially; erythema resolving. Linear surgical incision noted with mild sanginous drainage expressed. Tenderness to palpation. - Neurological Exam Neurological Exam: Alert, Awake, Oriented x3 - Psychiatric Exam Psychiatric exam: Normal Affect, Normal Mood - Skin Skin Exam: Warm Assessment and Plan - Assessment and Plan (Free Text) Assessment: 58 year old female POD#1 left arm abscess incision and drainage Plan: - Regular diet - Stable from surgery standpoint - C/w antibiotics - Pain control - Patient to remove packing in 1-2 days - F/u in 1 week - Further recs per Dr. Fabrizio Bunn PGY1 [facility] PGY4
[2018-09-05] MEDS: guaiFENesin-DM 600-30 mg ER Tab PO SCH (08:22)
[2018-09-05 08:27] VITALS: PULSE 71
--- NOTE | 2018-09-05 12:42 | PCM.PYCHPN ---
Psychiatric Progress Note - Psychiatric Progress Note Patient seen today, length of contact: chart reviewed case discussed with team Patient Chief Complaint: pt has been improved and stabilized on meds and denies suicidal ideation.no side effects .pt has improved medically recovering from the surgical procedure on the ulcer.. Medication Change: No Medical Record Reviewed: Yes Mental Status Examination - Cognitive Function Orientation: Person, Place, Situation, Time Attention: WNL Concentration: WNL Association: WNL Fund of Knowledge: WNL - Mood Mood: Neutral - Affect Affect: Broad - Formal Thought Process Formal Thought Process: No Impairment - Suicidal Ideation Suicidal Ideation: No - Homicidal Ideation Homicidal Ideation: No Goal/Treatment Plan - Goal/Treatment Plan Progress Toward Problem(s) and Goals/Treatment Plan: pt has been improved and stabilized on meds and psychiatrically stable for d/c to home today. Estimated Date of D/C: 09/05/18
[2018-09-05] MEDS ORDERED: Lactobacillus Acidophilus 500 MU Cap PO SCH (14:00)
--- NOTE | 2018-09-05 15:48 | PCM.OP ---
Operative Report - Operative Report Date of Surgery/Procedure: 09/04/18 Time of Surgery/Procedure: 14:00 Surgeon: Dr. Dinh Clinical Case Manager: Dr. Elizabeth Bunn PGY1 Anesthesia/Sedation: Dr. Muñoz Pre-Operative Diagnosis: Left arm abscess Post-Operative Diagnosis: Left arm abscess Indication for Surgery: The patient is a 58 year old female with the above diagnosis. The patient has exhausted all conservative treatment at this time and now requires surgical intervention. The patient signed the consent after careful explanation of risks, benefits, complications and alternatives for surgical procedure. No guarantees were given nor implied. Operative Findings: Left arm abscess Procedure/Operation Description: Preparation: The patient was brought in to the operating room and placed on the operating room table in a supine position. Timeout was performed for identification of the correct patient and procedure. Once anesthesia was achieved the left arm was then prepped and draped in normal sterile manner and the procedure began. Procedure: 1. Left arm abscess incision and drainage Attention was directed to the left forearm where a 2.3 cm x 1.5 cm x 1cm abscess was appreciated. The patient received a total of 2cc of 1% lidocaine plain in a local block fashion to the area. Next utilizing a #15 blade a 1cm linear incision was made to the dorsal aspect of the cyst and purulence was expressed. At this time a wound culture was taken and passed off the operative field. Next, the area was copiously irrigated with normal sterile saline. The wound was then left open and packed with 1/4 inch iodoform packing. The wound was then dressed with 4x4 and cling. Estimated Blood Loss: 1cc Complications: None to left forearm Specimen: Wound culture Discharge & Condition: Postoperative Condition: The patient tolerated the anesthesia and procedure well and was escorted to the recovery room with vital signs stable and neurovascular status intact to the left forearm. Patient will be seen on the floors while in house, and is to follow up with Dr. Dinh within one week of procedure.
--- NOTE | 2018-09-17 00:32 | PN ---
DATE: 09/03/2018 PSYCHIATRIC FOLLOWUP PROGRESS NOTE SUBJECTIVE: The patient has been seen today. The chart was reviewed and the case was discussed with treatment team members. The patient has a significant history of depression and anxiety who has been admitted because of severe anxiety attack and depression. She has been currently maintained on Remeron and also p.r.n. medications for anxiety, but she has remained intermittently anxious, unable to sleep at night, waking up in anxiety, is anxious, saying that she has not been getting any better on the medications. She denies any side effects to medications. Denies any suicidal ideation, plan or intent. Her insight and judgement remain poor, and she is exhibiting med seeking behavior and minimized her dependence on the benzodiazepine and has to be reassured and educated regarding not to be asking for too much benzodiazepine, and she has agreed to the plan. The patient denies any side effects to the medications. Insight and judgement appear limited. She has not been exhibiting any psychotic symptoms. No overt side effects noted. DIAGNOSTIC IMPRESSION: 1. Major depression, severe. 2. Generalized anxiety disorder. PLAN OF TREATMENT: Discussed with the patient the risks and benefits and rationale to add Remeron 15 mg at bedtime for anxiety and depression. The patient agreed to the plan. We will continue to engage the patient on therapy and group for further management. The patient once stabilized in the unit with therapy and medications, the treatment team will initiate discharge planning. Familia Corley MD
== END 2018-09-05 03:45 | disposition home or self-care (01) | DRG 426 ==
LOC: H.ER 01:48 → H.PSYCH 02:27 → H.STEP 02:42
PROVIDERS: ADMIT Psychiatry & Neurology Psychiatry; ATTEND Psychiatry & Neurology Psychiatry
PROC: GZ51ZZZ Individual Psychotherapy, Behavioral (ICD-10-PCS; 2018-09-01)
PROC: GZ56ZZZ Individual Psychotherapy, Supportive (ICD-10-PCS; 2018-09-01)
PROC: 0H9EXZZ Drainage of Left Lower Arm Skin, External Approach (ICD-10-PCS; principal; 2018-09-04 13:00)
DX: F32.9 Major depressive disorder, single episode, unspecified (principal); F13.20 Sedative, hypnotic or anxiolytic dependence, uncomplicated; J43.9 Emphysema, unspecified; L02.414 Cutaneous abscess of left upper limb; L03.114 Cellulitis of left upper limb; F41.1 Generalized anxiety disorder; I10 Essential (primary) hypertension; L73.9 Follicular disorder, unspecified; R45.851 Suicidal ideations; W55.01XA Bitten by cat, initial encounter; W55.03XA Scratched by cat, initial encounter; M54.9 Dorsalgia, unspecified; G89.29 Other chronic pain; Y92.9 Unspecified place or not applicable; F17.200 Nicotine dependence, unspecified, uncomplicated